=== PATIENT | female | born 1970 | race Caucasian/White ===

== ENCOUNTER → 2016-03-20 | Outpatient (REF) | payer OTHER | LOC: M SFHCLERA 10:35 | PROVIDERS: ATTEND Physician Assistant | DX: J02.9 Acute pharyngitis, unspecified (principal) ==

== ENCOUNTER → 2016-07-02 | Outpatient (CLI) | payer OTHER ==
[~2016-07-02] VITALS: Ht 160 cm; Wt 87.1 kg
[~2016-07-02] MED LIST: ALLE180T33 PO; ATEN50TA2 PO; CLOB-25 EX; CYCL10TA PO; DOXY100C PO; EPIP0.3I2 IJ; ESOM1CAP5 PO; FLAX1000 PO; FLUO0.0114 OT; LIDOCAINE 2% INJ 100 MG/5 ML SDV (FOR ANES.) As Ordered ONE; MELO15TA4 PO; NS 1,000 ML IV ONE; OLOP1OPD OU; PROPOFOL 200 MG/20 ML VIAL As Ordered ONE; QNAS80AE; SOOL1CRE EX; TYLETAB14 PO; VITA500046 PO; allergy shot
--- NOTE | 2016-07-02 14:58 | ROOR ---
Patient Name: Melody Yeh Procedure Date: 07/02/2016 2:44 PM Date of : 1970 Age: 45 Room: [facility] Gender: Female Note Status: Finalized Procedure: Upper GI endoscopy Indications: Heartburn Providers: Pedro SANTOS MD Referring MD: SIERRA ESQUIVEL MD Requesting Provider: Medicines: Monitored Anesthesia Care Complications: No immediate complications. Procedure: Pre-Anesthesia Assessment: - The heart rate, respiratory rate, oxygen saturations, blood pressure, adequacy of pulmonary ventilation, and response to care were monitored throughout the procedure. The Endoscope was introduced through the mouth, and advanced to the second part of duodenum. The upper GI endoscopy was accomplished without difficulty. The patient tolerated the procedure well. Findings: The examined esophagus was normal. The entire examined stomach was normal. (large, compliant stomach) The examined duodenum was normal. Impression: - Normal esophagus. - Normal stomach. - Normal examined duodenum. (incidental:small duodenal diverticulum) - No specimens collected. Recommendation: - Continue present medications. - Gastroparesis diet: - Eat smaller, more frequent meals throughout the day. - Low fat diet. - Liquid/soft foods are tolerated better than solid foods. - Low fiber/well cooked vegetables are tolerated better than high fiber/fibrous foods/raw vegetables. - Avoid medications that inhibit gastric/intestinal motility such as narcotic medications. Pedro Santos MD Pedro SANTOS MD 07/02/2016 2:58:24 PM This report has been signed electronically. Number of Addenda: 0 Note Initiated On: 07/02/2016 2:44 PM Estimated Blood Loss: Estimated blood loss: none.
--- NOTE | 2016-07-02 15:09 | ROOR ---
Patient Name: Meoldy Yeh Procedure Date: 07/02/2016 2:45 PM Date of : 1970 Age: 45 Room: [facility] Gender: Female Note Status: Finalized Procedure: Colonoscopy Indications: Colon cancer screening in patient with 1st-degree relative having advanced adenoma of the colon before age 60 Providers: Pedro SANTOS MD Referring MD: SIERRA ESQUIVEL MD Requesting Provider: Medicines: Monitored Anesthesia Care Complications: No immediate complications. Procedure: Pre-Anesthesia Assessment: - The heart rate, respiratory rate, oxygen saturations, blood pressure, adequacy of pulmonary ventilation, and response to care were monitored throughout the procedure. The Colonoscope was introduced through the anus and advanced to the terminal ileum, with identification of the appendiceal orifice and IC valve. The colonoscopy was performed without difficulty. The patient tolerated the procedure well. The quality of the bowel preparation was good. Findings: The perianal and digital rectal examinations were normal. A 5 mm polyp was found in the ascending colon. The polyp was sessile. The polyp was removed with a cold snare. Resection and retrieval were complete. A few small-mouthed diverticula were found in the sigmoid colon. Small Internal Hemorrhoids. The exam was otherwise without abnormality on direct and retroflexion views. Impression: - One 5 mm polyp in the ascending colon, removed with a cold snare. Resected and retrieved. - Mild diverticulosis in the sigmoid colon. - Small Internal Hemorrhoids. - The examination was otherwise normal on direct and retroflexion views. Recommendation: - Repeat colonoscopy in 5 years for surveillance. Pedro Santos MD Pedro SANTOS MD 07/02/2016 3:09:22 PM This report has been signed electronically. Number of Addenda: 0 Note Initiated On: 07/02/2016 2:45 PM Estimated Blood Loss: Estimated blood loss: none.
[2016-07-02 15:25] VITALS: BP 112/69
== END | disposition home or self-care (01) ==
LOC: M OPP 12:14
PROVIDERS: ATTEND Internal Medicine Gastroenterology
DX: Z12.11 Encounter for screening for malignant neoplasm of colon (principal); Z83.71 Family history of colonic polyps; D12.2 Benign neoplasm of ascending colon; K57.30 Diverticulosis of large intestine without perforation or abscess without bleeding; K64.8 Other hemorrhoids; R12 Heartburn; I34.1 Nonrheumatic mitral (valve) prolapse; M51.9 Unspecified thoracic, thoracolumbar and lumbosacral intervertebral disc disorder; M19.90 Unspecified osteoarthritis, unspecified site; M75.81 Other shoulder lesions, right shoulder; Z79.899 Other long term (current) drug therapy; Z91.013 Allergy to seafood; Z88.7 Allergy status to serum and vaccine; Z88.8 Allergy status to other drugs, medicaments and biological substances; Z91.018 Allergy to other foods

== ENCOUNTER 2016-12-19 12:40 | Emergency (ER) | payer OTHER ==
[~2016-12-19] VITALS: Ht 157.5 cm; Wt 86.3 kg
[~2016-12-19 12:40] MED LIST changes: -LIDOCAINE 2% INJ 100 MG/5 ML SDV (FOR ANES.) As Ordered ONE; -NS 1,000 ML IV ONE; -PROPOFOL 200 MG/20 ML VIAL As Ordered ONE
[2016-12-19] MEDS ORDERED: MULT1CHW39 PO (12:50)
[2016-12-19] MEDS ORDERED: NS 1,000 ML IV SCH (13:14)
[2016-12-19] MEDS ORDERED: methylPREDNISolone INJ 125 MG/2 ML VIAL (J2930) IV ONE (13:15)
[2016-12-19] MEDS ORDERED: FAMOTIDINE IV BAG 40 MG in APPROPRIATE DILUENT 1 EA IV ONE (13:15)
[2016-12-19 13:46] LABS: BASO % 0.4 % (0.0-1.0); EOS # 0.1 10^3/uL (0.0-0.50); EOS % 1.2 % (0.0-3.0); IMMATURE GRANULOCYTE % 0.2 % (0-0); LYMPH # 1.5 10^3/uL (1.5-4.5); LYMPH % 18.8 % (24.0-44.0); MEAN CORPUSCULAR HEMOGLOBIN 28.9 pg (27.0-33.0); MEAN CORPUSCULAR HGB CONC 33.6 g/dl (32.0-36.5); MEAN CORPUSCULAR VOLUME 85.9 fl (80.0-96.0); MONO # 0.4 10^3/uL (0.0-0.8); NEUTROPHILS % 74.4 % (36.0-66.0); PLATELET COUNT, AUTOMATED 267 10^3/uL (150-450); RED CELL DISTRIBUTION WIDTH 12.9 % (11.5-14.5)
[2016-12-19 14:19] LABS: ANION GAP 8 MEQ/L (8-16); BLOOD UREA NITROGEN 13 MG/DL (7-18); CALCIUM LEVEL 8.6 MG/DL (8.5-10.1); CARBON DIOXIDE LEVEL 26 MEQ/L (21-32); CHLORIDE LEVEL 105 MEQ/L (98-107); CREATININE FOR GFR 0.93 MG/DL (0.55-1.02); GLOMERULAR FILTRATION RATE > 60.0 (>58); GLUCOSE, FASTING 94 MG/DL (70-105); POTASSIUM SERUM 4.3 MEQ/L (3.5-5.1); SODIUM LEVEL 139 MEQ/L (136-145)
[2016-12-19 15:36] VITALS: BP 121/80
== END 2016-12-19 15:58 | disposition home or self-care (01) ==
LOC: EDBD 12:40 → M ED 12:40
DX: T78.40XA Allergy, unspecified, initial encounter (principal); Z91.030 Bee allergy status; W57.XXXA Bitten or stung by nonvenomous insect and other nonvenomous arthropods, initial encounter; Y92.89 Other specified places as the place of occurrence of the external cause; Y93.89 Activity, other specified; Y99.9 Unspecified external cause status
CPT/HCPCS: 80048; 85025; 93041; 94760; 96374; 96375; 99285; J2930

== ENCOUNTER → 2017-02-07 | Outpatient (CLI) | payer OTHER ==
[~2017-02-07] MED LIST changes: +MULT1CHW39 PO
--- NOTE | 2017-02-07 17:43 | REP ---
BILATERAL DIAGNOSTIC MAMMOGRAM AND BILATERAL BREAST ULTRASOUND: Bilateral mammography performed in the MLO and CC projections. Comparison is made with prior studies from [facility], most recent in 2015. There is mild scattered fibroglandular tissue bilaterally. Reportedly there is a palpable abnormality felt by the referring clinician in the region of 12-2 o'clock left breast. Spot compression views are performed in that region. No mass or architectural distortion is seen in the left breast. In the right breast there is an oval nodule about 8 mm in diameter in the upper outer quadrant posteriorly. The majority of the margins are fairly well defined and smooth marginated. No suspicious clusters of microcalcifications are seen. A few benign appearing calcifications are present bilaterally and there are small bilateral axillary lymph nodes. Real-time sonographic evaluation of the right breast is performed in the upper outer quadrant. At 9 o'clock there is an oval cyst corresponding to the nodule on the mammogram measuring 5 mm in maximum diameter. This appears benign. Several tiny cysts are seen in the left breast in the region of 12-2 o'clock, maximum diameter of 4 mm. No suspicious nodule is seen in this region of the left breast. IMPRESSION: ACR 2 benign. There is an oval cyst in the outer right breast seen both mammographically and sonographically. Left breast demonstrates no mammographic abnormality. There are a few tiny cysts in the region of 12-2 o'clock in the left breast but no suspicious solid mass is seen, followup mammogram is recommended in one year. BI-RADS/ACR category 2 mammogram. Benign finding(s). Routine annual screening mammography (for women over age 40). This mammogram was interpreted with the aid of an FDA-approved computer-aided detection system. The patient states she had a clinical breast exam in 11/2016. The patient letter being requested is M2. Signed by Nikhil De La O MD 02/09/2017 08:59 A
== END ==
LOC: M RAD 10:28
PROVIDERS: ATTEND Obstetrics & Gynecology
DX: Z12.31 Encounter for screening mammogram for malignant neoplasm of breast (principal)

== ENCOUNTER → 2017-04-07 | Outpatient (REF) | payer OTHER | LOC: M LAB REF 13:20 | DX: J30.9 Allergic rhinitis, unspecified (principal) ==

== ENCOUNTER → 2017-04-25 | Outpatient (CLI) | payer OTHER | LOC: M RAD 15:21 | DX: J32.8 Other chronic sinusitis (principal) | CPT/HCPCS: 70486 ==

== ENCOUNTER → 2018-05-09 | Outpatient (CLI) | payer OTHER ==
[~2018-05-09] MED LIST changes: -FLAX1000 PO; +FLAX10008 PO; +MELO15TA28 PO; -MELO15TA4 PO
--- NOTE | 2018-05-09 14:22 | REPMRS ---
Patient History The patient states she has not had a clinical breast exam in over a year. No known family history of cancer. Autoimmune disease Digital Mammo Diagnostic Bilateral: May 09, 2018 - Exam #: [id number] Bilateral CC and MLO view(s) were taken. Technologist: Berna Hernadez, Technologist Prior study comparison: February 07, 2017, digital mammo diagnostic bilateral performed at [facility]. 2014, digital bilateral screening mammo, performed at [facility]. FINDINGS: The breast tissue is heterogeneously dense. This may lower the sensitivity of mammography. There has been no change in the appearance of the mammogram from the prior studies. There is a moderate amount of residual fibroglandular tissue which is fairly symmetric. There is no interval development of dominant mass, architectural distortion, or clustered microcalcification typical of malignancy. Stable small nodule UOQ right breast as seen on prior mammogram and US as a cyst. The left UOQ nodule on prior study no longer visible on standard or tomosynthesis images. Large coarse benign appearing calcifications are seen on the right. Scattered lymph nodes are seen in the left axilla. 3-D tomosynthesis shows no additional findings. No significant changes when compared with prior studies. Assessment: BI-RADS/ACR category 2 mammogram. Benign Findings. Recommendation Routine screening mammogram in 1 year (for women over age 40). This mammogram was interpreted with the aid of an FDA-approved computer-aided dectection system. A. Negative x-ray reports should not delay biopsy if a dominant or clinically suspicious mass is present. B. Four to eight percent of cancers are not identified by mammography. C. Adenosis and dense breast may obscure an underlying neoplasm. Electronically Signed By: Immanuel Saldana MD 05/09/18 [id number]
== END ==
LOC: M RAD 13:25
PROVIDERS: ATTEND Obstetrics & Gynecology
DX: Z12.31 Encounter for screening mammogram for malignant neoplasm of breast (principal)
CPT/HCPCS: 77066; G0279

== ENCOUNTER → 2018-06-30 | Outpatient (CLI) | payer OTHER ==
[~2018-06-30] MED LIST changes: -MULT1CHW39 PO; +MULT200T7 PO; -OLOP1OPD OU; +PATA2.5S OU
--- NOTE | 2018-06-30 15:02 | REP ---
RIGHT UPPER QUADRANT ULTRASOUND: HISTORY: Right upper quadrant pain. COMPARISON: None. Multiple ultrasonographic images of the liver show the hepatic parenchymal echo pattern to be within normal limits. There are no masses. There is no intrahepatic or extrahepatic ductal dilatation. The common bile duct measures between 3 and 4 mm. Multiple ultrasonographic images of the gallbladder show no abnormalities. There is no pericholecystic edema or gallbladder wall thickening. There are no choleliths. The imaged portion of the pancreas and right kidney are normal. IMPRESSION: Right upper quadrant ultrasound is within normal limits. Electronically Signed by Denis Chavis DO 06/30/2018 04:38 P
== END ==
LOC: M RAD 08:04
PROVIDERS: ATTEND Physician Assistant Medical
DX: R10.11 Right upper quadrant pain (principal)

== ENCOUNTER → 2018-08-07 | Outpatient (CLI) | payer OTHER ==
--- NOTE | 2018-08-07 13:28 | REP ---
Hepatobiliary scan and gallbladder ejection fraction: History: Right upper quadrant pain. Technique: 6.6 mCi of technetium-99m mebrofenin was injected and sequential anterior images are acquired. 65 minutes after the mebrofenin injection, the patient consumed 8 ounces Ensure and an additional 60 minutes of imaging was acquired. Regions of interest are plotted around the gallbladder. Findings: The initial hepatocellular parenchymal uptake phase is normal and homogeneous. Intra- and extra-hepatic bile ducts and duodenum are labeled by the 15 a -minute image. The gallbladder is first labeled on the 20 -minute image. There is normal washout from the liver parenchyma into the gallbladder and small intestine on subsequent images. The gallbladder ejection fraction is 65 %. Values greater than 35 % are considered normal with this technique. Impression: Normal hepatobiliary scan and normal gallbladder ejection fraction. Electronically Signed by Jere Lance MD 08/07/2018 01:20 P
== END ==
LOC: M RAD 08:58
PROVIDERS: ATTEND Physician Assistant Medical
DX: R10.11 Right upper quadrant pain (principal)
CPT/HCPCS: 78227; A9537; J2805

== ENCOUNTER → 2018-08-14 | Outpatient (CLI) | payer OTHER ==
--- NOTE | 2018-08-14 12:15 | REP ---
Gastric emptying nuclear scintigraphy: History: Early satiety. Nausea. Abdominal bloating. Technique: 1.03 mCi of technetium-99m sulfur colloid was ingested in two scrambled eggs and 6 ounces of water and sequential anterior and posterior images are acquired for an 89-minute imaging observation period. Regions of interest are drawn around the stomach to plot gastric emptying. Scintigraphic findings: Expected T1/2 is 90 minutes. 41 % emptying is observed in this patient during the 89-minute imaging observation period, for a calculated T1/2 in this patient of 98 minutes. Impression: Normal gastric emptying. Electronically Signed by Jere Lance MD 08/14/2018 12:06 P
== END ==
LOC: M RAD 09:08
PROVIDERS: ATTEND Physician Assistant Medical
DX: R68.81 Early satiety (principal)
CPT/HCPCS: 78264; A9541

== ENCOUNTER → 2018-09-11 | Outpatient (REF) | payer OTHER | LOC: M LAB REF 13:42 | PROVIDERS: ATTEND Physician Assistant Medical | DX: R19.4 Change in bowel habit (principal) ==

== ENCOUNTER → 2018-10-06 | Outpatient (REF) | payer OTHER | LOC: M LAB REF 13:14 | PROVIDERS: ATTEND Physician Assistant Medical | DX: R19.4 Change in bowel habit (principal) ==

== ENCOUNTER → 2019-01-03 | Outpatient (CLI) | payer OTHER ==
[2019-01-03 16:31] LABS: BASO # 0.1 10^3/uL (0.0-0.2); BASO % 0.7 % (0.0-1.0); EOS # 0.3 10^3/uL (0.0-0.5); EOS % 3.1 % (0.0-3.0); HEMATOCRIT 39.9 % (36.0-47.0); HEMOGLOBIN 12.8 g/dl (12.0-15.5); LYMPH # 1.9 10^3/uL (1.5-5.0); LYMPH % 21.6 % (24.0-44.0); MEAN CORPUSCULAR HEMOGLOBIN 28.9 pg (27.0-33.0); MEAN CORPUSCULAR HGB CONC 32.1 g/dl (32.0-36.5); MEAN CORPUSCULAR VOLUME 90.1 fl (80.0-96.0); MONO # 0.5 10^3/uL (0.0-0.8); NEUTROPHILS # 6.1 10^3/uL (1.5-8.5); NEUTROPHILS % 68.2 % (36.0-66.0); PLATELET COUNT, AUTOMATED 288 10^3/uL (150-450); RED BLOOD COUNT 4.43 10^6/uL (4.00-5.40); WHITE BLOOD COUNT 8.9 10^3/uL (4.0-10.0)
[2019-01-03 17:05] LABS: ALBUMIN 3.5 GM/DL (3.2-5.2); ALT/SGPT 21 U/L (12-78); BILIRUBIN,TOTAL 0.3 MG/DL (0.2-1.0); BLOOD UREA NITROGEN 11 MG/DL (7-18); CALCIUM LEVEL 8.7 MG/DL (8.5-10.1); CARBON DIOXIDE LEVEL 27 MEQ/L (21-32); CHLORIDE LEVEL 106 MEQ/L (98-107); CREATININE FOR GFR 0.99 MG/DL (0.55-1.30); GLOMERULAR FILTRATION RATE > 60.0 (>58); GLUCOSE, FASTING 98 MG/DL (70-100); POTASSIUM SERUM 4.3 MEQ/L (3.5-5.1); SODIUM LEVEL 139 MEQ/L (136-145); TOTAL PROTEIN 6.5 GM/DL (6.4-8.2)
== END ==
LOC: M LAB 15:19
PROVIDERS: ATTEND Physician Assistant Medical
DX: R10.11 Right upper quadrant pain (principal)

== ENCOUNTER → 2019-01-17 | Outpatient (CLI) | payer OTHER ==
--- NOTE | 2019-01-17 10:03 | REP ---
RIGHT UPPER QUADRANT ULTRASOUND: Real-time sonographic evaluation of the right upper quadrant is performed. The gallbladder demonstrates no evidence of intraluminal sludge or calculi, wall thickening or pericholecystic fluid. There is no intrahepatic or extrahepatic biliary dilatation. Common bile duct measuring 4 mm. Liver and pancreas demonstrate homogenous echotexture with no gross mass, pancreas is not optimally seen due to overlying bowel gas. The right kidney demonstrates no hydronephrosis with normal size 11.3 cm in length. IMPRESSION: Negative right upper quadrant ultrasound. Electronically Signed by Nikhil De La O MD 01/17/2019 03:50 P
== END ==
LOC: M RAD 08:19
PROVIDERS: ATTEND Physician Assistant Medical
DX: R10.11 Right upper quadrant pain (principal); R11.2 Nausea with vomiting, unspecified; R14.0 Abdominal distension (gaseous)

== ENCOUNTER → 2019-03-14 | Outpatient (REF) | payer OTHER | LOC: M LAB REF 10:59 | PROVIDERS: ATTEND Physician Assistant Medical | DX: R19.4 Change in bowel habit (principal) ==

== ENCOUNTER → 2019-03-30 | Outpatient (CLI) | payer OTHER | LOC: M LAB 11:06 | PROVIDERS: ATTEND Internal Medicine Endocrinology, Diabetes & Metabolism | DX: E06.3 Autoimmune thyroiditis (principal) ==

== ENCOUNTER → 2019-03-30 | Outpatient (CLI) | payer OTHER ==
[2019-03-30 12:23] LABS: BASO # 0.1 10^3/uL (0.0-0.2); BASO % 0.7 % (0.0-1.0); EOS # 0.1 10^3/uL (0.0-0.5); EOS % 1.6 % (0.0-3.0); HEMOGLOBIN 12.5 g/dl (12.0-15.5); LYMPH # 1.1 10^3/uL (1.5-5.0); LYMPH % 15.1 % (24.0-44.0); MEAN CORPUSCULAR HEMOGLOBIN 28.9 pg (27.0-33.0); MEAN CORPUSCULAR HGB CONC 32.1 g/dl (32.0-36.5); MEAN CORPUSCULAR VOLUME 90.3 fl (80.0-96.0); MONO # 0.4 10^3/uL (0.0-0.8); MONO % 4.9 % (0.0-5.0); NEUTROPHILS # 5.7 10^3/uL (1.5-8.5); NEUTROPHILS % 77.4 % (36.0-66.0); PLATELET COUNT, AUTOMATED 269 10^3/uL (150-450); RED BLOOD COUNT 4.32 10^6/uL (4.00-5.40); WHITE BLOOD COUNT 7.3 10^3/uL (4.0-10.0)
[2019-03-30 13:00] LABS: IMMUNOGLOBULIN G 664 MG/DL (681-1648); IMMUNOGLOBULIN M 42.6 MG/DL (40-230)
[2019-03-30 14:16] LABS: RUBELLA IgG QUALITATIVE IMMUNE (IMMUNE)
== END ==
LOC: M LAB 11:10
PROVIDERS: ATTEND Allergy & Immunology Allergy
DX: L50.1 Idiopathic urticaria (principal); D84.9 Immunodeficiency, unspecified; E06.3 Autoimmune thyroiditis

== ENCOUNTER → 2019-06-26 | Outpatient (CLI) | payer OTHER ==
[~2019-06-26] MED LIST changes: +AZEL20CR EXT; +CYCL-707 PO; -CYCL10TA PO; +FLAX10002 PO; +MULT1TAB42 PO; +PROBCAP14 PO; +RA B2500 PO; +VITA500079 PO; +ZANA4TAB PO; +boswellia PO; +tumeric PO
[2019-06-26 16:44] LABS: FREE T4 1.41 NG/DL (0.76-1.46); THYROID STIMULATING HORMONE 2.66 uIU/ML (0.358-3.740)
== END ==
LOC: M LAB 15:00
PROVIDERS: ATTEND Nurse Practitioner Family
DX: E06.3 Autoimmune thyroiditis (principal)

== ENCOUNTER → 2019-06-26 | Outpatient (CLI) | payer OTHER ==
--- NOTE | 2019-06-26 17:25 | REP ---
MAXILLOFACIAL CT STUDY WITHOUT CONTRAST: HISTORY: Chronic pansinusitis. Comparison studies are from April 25, 2017 and February 09, 2013. CT FINDINGS: Preliminary striker off views are unremarkable. Frontal sinuses are not developed. Ethmoid sinuses are clear. Sphenoid sinuses are clear. Mastoid aeration is normal and symmetric. The maxillary sinuses remain clear. Ostiomeatal complexes are patent bilaterally. Nasal turbinate soft tissues are unremarkable and symmetric. The nasal septum deviates somewhat to the left with a small beak, unchanged. No intraorbital abnormality is seen. Visualized intracranial structures and deep facial soft tissues are unremarkable. IMPRESSION: There is no CT evidence of sinusitis. Electronically Signed by Jere Lance MD 06/27/2019 09:05 A
== END ==
LOC: M RAD 14:55
PROVIDERS: ATTEND Physician Assistant Medical
DX: J32.4 Chronic pansinusitis (principal); E06.3 Autoimmune thyroiditis

== ENCOUNTER → 2019-09-12 | Outpatient (CLI) | payer OTHER ==
--- NOTE | 2019-09-12 09:45 | REPMRS ---
Patient History The patient states she has not had a clinical breast exam in over a year. No known family history of cancer. 3D TOMOSYNTHESIS WAS PERFORMED. [facility] lifetime risk for [facility] cancer is 8.4%. FADI Villatoro. Digital Woman Screen Mammo: September 12, 2019 - Exam #: [id number] Bilateral CC and MLO view(s) were taken. Technologist: Berna Hernadez, Technologist Prior study comparison: May 09, 2018, digital mammo diagnostic bilateral, performed at [facility]. February 07, 2017, digital mammo diagnostic bilateral, performed at [facility]. FINDINGS: The breast tissue is heterogeneously dense. This may lower the sensitivity of mammography. There has been no change in the appearance of the mammogram from the prior studies. There is a moderate amount of residual fibroglandular tissue which is fairly symmetric. There is no interval development of dominant mass, areas of architectural distortion, or clustered microcalcification typical of malignancy. Assessment: BI-RADS/ACR category 1 mammogram. Negative Mammogram. Recommendation Routine screening mammogram in 1 year (for women over age 40). This mammogram was interpreted with the aid of an FDA-approved computer-aided dectection system. Electronically Signed By: Nikhil De La O MD 09/12/19 [id number]
== END ==
LOC: M WHC 07:50
PROVIDERS: ATTEND Obstetrics & Gynecology
DX: Z12.31 Encounter for screening mammogram for malignant neoplasm of breast (principal)

== ENCOUNTER 2019-10-01 10:30 | Day surgery (SDC) | payer OTHER ==
[2019-10-01] MEDS ORDERED: propofoL 200 MG/20 ML VIAL As Ordered ONE (10:54)
[2019-10-01] MEDS ORDERED: LIDOCAINE 2% 100MG/5ML SDV (FOR ANES.) As Ordered ONE (10:54)
--- NOTE | 2019-11-07 11:32 | ROOR ---
Patient Name: Melody Yeh Procedure Date: 10/01/2019 8:13 AM Date of : 1970 Age: 48 Room: [facility] Gender: Female Note Status: Finalized Procedure: Upper GI endoscopy Indications: Functional Dyspepsia, Gastroparesis Providers: Pedro SANTOS MD Referring MD: SIERRA ESQUIVEL MD Requesting Provider: Medicines: Monitored Anesthesia Care Complications: No immediate complications. Procedure: Pre-Anesthesia Assessment: - The heart rate, respiratory rate, oxygen saturations, blood pressure, adequacy of pulmonary ventilation, and response to care were monitored throughout the procedure. The Endoscope was introduced through the mouth, and advanced to the third part of duodenum. The upper GI endoscopy was accomplished without difficulty. The patient tolerated the procedure well. Findings: The esophagus was normal. The stomach was normal. The examined duodenum was normal. Biopsies were taken with a cold forceps in the second portion of the duodenum and in the third portion of the duodenum for histology. Impression: - Normal esophagus. - Normal stomach. - Normal examined duodenum. - Biopsies were taken with a cold forceps for histology in the second portion of the duodenum and in the third portion of the duodenum. Recommendation: - Telephone endoscopist for pathology results in 2 weeks. - Observe patient's clinical course. - Gastroparesis diet: - Eat smaller, more frequent meals throughout the day. - Low fat diet. - Liquid/soft foods are tolerated better than solid foods. - Low fiber/well cooked vegetables are tolerated better than high fiber/fibrous foods/raw vegetables. - Avoid medications that inhibit gastric/intestinal motility such as narcotic medications. Pedro Santos MD Pedro SANTOS MD 10/01/2019 11:13:27 AM Electronically signed by Pedro SANTOS MD Number of Addenda: 0 Note Initiated On: 10/01/2019 8:13 AM Estimated Blood Loss: Estimated blood loss: none.
== END 2019-10-01 12:05 | disposition home or self-care (01) ==
LOC: M OPP 10:30
PROVIDERS: ATTEND Internal Medicine Gastroenterology
DX: K57.30 Diverticulosis of large intestine without perforation or abscess without bleeding (principal); K30 Functional dyspepsia; K31.84 Gastroparesis; R19.4 Change in bowel habit; I48.91 Unspecified atrial fibrillation; E06.3 Autoimmune thyroiditis; M79.7 Fibromyalgia; Z79.899 Other long term (current) drug therapy; Z88.1 Allergy status to other antibiotic agents; Z88.5 Allergy status to narcotic agent; Z91.030 Bee allergy status; Z91.048 Other nonmedicinal substance allergy status

== ENCOUNTER → 2021-08-06 | Outpatient (CLI) | payer OTHER ==
[~2021-08-06] MED LIST changes: -DOXY100C PO; +DOXY100C3 PO
== END ==
LOC: M PLAIMG 15:10
PROVIDERS: ATTEND Internal Medicine Rheumatology
DX: L40.50 Arthropathic psoriasis, unspecified (principal)

== ENCOUNTER → 2021-09-23 | Outpatient (CLI) | payer OTHER | LOC: M WHC 13:52 | PROVIDERS: ATTEND Family Medicine | DX: Z12.31 Encounter for screening mammogram for malignant neoplasm of breast (principal) ==

== ENCOUNTER → 2023-07-14 | Outpatient (CLI) | payer OTHER | LOC: M WHC 14:26 | PROVIDERS: ATTEND Internal Medicine | DX: Z12.31 Encounter for screening mammogram for malignant neoplasm of breast (principal) ==

== ENCOUNTER → 2023-10-21 | Outpatient (CLI) | payer OTHER ==
[~2023-10-21] MED LIST changes: +ESOM1CAP20 PO; -ESOM1CAP5 PO; -FLUO0.0114 OT; +FLUO0.0133 OT
== END ==
LOC: M WHC 10:40
PROVIDERS: ATTEND Internal Medicine
DX: Z12.31 Encounter for screening mammogram for malignant neoplasm of breast (principal)

== ENCOUNTER → 2023-12-12 | Outpatient (REF) | payer OTHER ==
[~2023-12-12] MED LIST changes: -MULT200T7 PO; +MULT200T9 PO
== END ==
LOC: M SFHCWAGY 13:03
PROVIDERS: ATTEND Obstetrics & Gynecology
DX: N93.9 Abnormal uterine and vaginal bleeding, unspecified (principal)

== ENCOUNTER 2024-06-01 08:22 | Day surgery (SDC) | payer OTHER ==
[~2024-06-01] VITALS: Ht 160 cm; Wt 85.8 kg
[~2024-06-01 08:22] MED LIST changes: +LR 1,000 ML IV SCH; +MAGN100C3 PO; +NAC600CA PO; +PANT40TA29 PO; +QNASL INH; +REDCAP13 PO; +SYNT50TA PO; +TRAM50TA2 PO; +VITATAB73 PO; +ZINC7.5T PO; +ZOLO100T PO; +ZYRTTAB8 PO; +[UNRECOGNIZED DRUG - OTHER] PO; +[UNRECOGNIZED DRUG - REMARK] PO
[2024-06-01] MEDS ORDERED: MIDAZOLAM INJ 2MG/2ML VIAL As Ordered ONE (08:48)
[2024-06-01] MEDS ORDERED: ROCURONIUM BROMIDE 50MG/5ML VIAL As Ordered ONE (08:49)
[2024-06-01] MEDS ORDERED: propofoL 200 MG/20 ML VIAL As Ordered ONE (08:49)
[2024-06-01] MEDS ORDERED: LIDOCAINE 2% INJ 100 MG/5 ML SYRINGE As Ordered ONE (08:49)
[2024-06-01] MEDS ORDERED: LIDOCAINE 2% 100MG/5ML SDV (FOR ANES.) As Ordered ONE (08:51)
[2024-06-01] MEDS ORDERED: fentaNYL 100 MCG/2 ML INJECTION As Ordered ONE (08:54)
[2024-06-01 09:18] LABS: HEMATOCRIT 40.6 % (36.0-47.0); HEMOGLOBIN 13.6 g/dl (12.0-15.5); MEAN CORPUSCULAR HEMOGLOBIN 30.6 pg (27.0-33.0); MEAN CORPUSCULAR HGB CONC 33.5 g/dl (32.0-36.5); MEAN CORPUSCULAR VOLUME 91.2 fl (80.0-96.0); PLATELET COUNT, AUTOMATED 299 10^3/uL (150-450); RED BLOOD COUNT 4.45 10^6/uL (4.00-5.40); WHITE BLOOD COUNT 8.8 10^3/uL (4.0-10.0)
[2024-06-01] MEDS: LR 1,000 ML IV SCH ×2 (09:37→13:27)
[2024-06-01] MEDS ORDERED: VITA200032 PO (09:41)
[2024-06-01] MEDS ORDERED: ACET300T48 PO (09:41)
[2024-06-01] MEDS ORDERED: ZINC1TAB PO (09:52)
[2024-06-01] MEDS ORDERED: IBUP200C25 PO (09:52)
[2024-06-01] MEDS ORDERED: [UNRECOGNIZED DRUG - OTHER] PO (09:52)
[2024-06-01] MEDS ORDERED: ZYRT10TA12 PO (09:52)
[2024-06-01] MEDS ORDERED: LORA1TAB23 PO (09:52)
[2024-06-01] MEDS ORDERED: OLOPATADINE (09:52)
[2024-06-01] MEDS ORDERED: OLOP2.5D7 OU (09:54)
[2024-06-01] MEDS ORDERED: HOME MED LIST COMPLETE! XX SCH (09:55)
[2024-06-01] MEDS: ceFAZolin SOD 2 GM IV ONCE IV ONE (10:10)
[2024-06-01] MEDS ORDERED: LIDOCAINE 5% OINT 30GM TUBE As Ordered ONE (10:17)
[2024-06-01] MEDS ORDERED: PHENYLephrine 500MCG 5ML (100MCG/ML) SYRINGE As Ordered ONE (10:19)
[2024-06-01] MEDS ORDERED: ePHEDrine SULFATE 25 MG/5 ML(5MG/ML) SYRINGE As Ordered ONE (10:31)
[2024-06-01] MEDS: SCOPOLAMINE 1MG TRANSDERMAL PATCH As Ordered ONE (10:36)
[2024-06-01] MEDS ORDERED: METOCLOPRAMIDE INJ 10MG/2ML VIAL As Ordered ONE (10:59)
[2024-06-01] MEDS ORDERED: KETOROLAC 30 MG/ML 1ML VIAL As Ordered ONE (11:14)
[2024-06-01] MEDS ORDERED: ONDANSETRON 4MG 2ML VIAL As Ordered ONE (11:14)
[2024-06-01] MEDS ORDERED: SUGAMMADEX SODIUM 500 MG/5 ML VIAL (BRIDION) As Ordered ONE (11:21)
[2024-06-01] MEDS ORDERED: ACETAMINOPH W/CODEINE #3 TAB UD PO PRN (11:25)
[2024-06-01] MEDS ORDERED: ONDANSETRON 4MG 2ML VIAL IV PRN (11:25)
[2024-06-01] MEDS ORDERED: ACET-716 PO (11:38)
[2024-06-01] MEDS ORDERED: IBUP80TA PO (11:38)
[2024-06-01] MEDS ORDERED: COLA100C5 PO (11:38)
[2024-06-01] MEDS: ACETAMINOPH W/CODEINE #3 TAB UD PO PRN (12:33)
[2024-06-01 13:15] VITALS: BP 127/81; TEMP 97.5; O2SAT 97
[2024-06-01 13:45] VITALS: BP 126/80; TEMP 97.7; O2SAT 98
[2024-06-01 14:15] VITALS: BP 124/79; TEMP 97.7; O2SAT 97
[2024-06-01 15:15] VITALS: BP 123/79; TEMP 97.7; O2SAT 98
[2024-06-01 16:15] VITALS: BP 126/75; TEMP 97.9; O2SAT 96
[2024-06-01] MEDS ORDERED: LEVOTHYROXINE 50MCG TABLET (0.05MG) PO SCH (20:00)
[2024-06-01] MEDS ORDERED: DOCUSATE SODIUM 100MG CAPSULE PO SCH (21:00)
[2024-06-01] MEDS ORDERED: KETOROLAC 30 MG/ML 1ML VIAL IV SCH (21:00)
[2024-06-02] MEDS ORDERED: PANTOPRAZOLE 40MG TAB (PROTONIX) PO SCH (09:00)
[2024-06-02] MEDS ORDERED: atenoloL 50 MG TAB PO SCH (09:00)
[2024-06-02] MEDS ORDERED: SERTRALINE 100 MG TAB PO SCH (09:00)
[2024-06-02] MEDS ORDERED: FEXOFENADINE 60MG TAB PO SCH (09:00)
[2024-06-02] MEDS ORDERED: CETIRIZINE (ZyrTEC) 10 MG TAB PO SCH (09:00)
[2024-06-02] MEDS ORDERED: IBUPROFEN 800 MG TAB PO SCH (17:00)
== END 2024-06-01 18:50 | disposition home or self-care (01) ==
LOC: M SDC 08:22 → UNDOADMOB 11:29 → M RR INP 11:29 → M MS5PR 13:15 → M RR INP 13:15 → UNDODISOB 18:50 → M SDC 18:50
PROVIDERS: ATTEND Obstetrics & Gynecology
DX: N88.8 Other specified noninflammatory disorders of cervix uteri (principal); N72 Inflammatory disease of cervix uteri; N83.11 Corpus luteum cyst of right ovary; N83.12 Corpus luteum cyst of left ovary; D25.2 Subserosal leiomyoma of uterus; D25.1 Intramural leiomyoma of uterus; N93.8 Other specified abnormal uterine and vaginal bleeding; R10.2 Pelvic and perineal pain; I05.9 Rheumatic mitral valve disease, unspecified; Z88.5 Allergy status to narcotic agent; Z88.1 Allergy status to other antibiotic agents; Z88.8 Allergy status to other drugs, medicaments and biological substances; Z91.012 Allergy to eggs; Z91.030 Bee allergy status; Z88.3 Allergy status to other anti-infective agents; Z91.013 Allergy to seafood; Z91.048 Other nonmedicinal substance allergy status; Z88.7 Allergy status to serum and vaccine; Z79.899 Other long term (current) drug therapy
CPT/HCPCS: 36415; 58571; 81025; 85027; 86850; 86900; 86901; 88307; 93005; J0665; J0690; J1100; J1885; J2250; J2371; J2405; J2765; J3010; S2900